=== PATIENT | male | born 1960 | race Caucasian/White ===

== ENCOUNTER → 2020-09-28 | Day surgery (SDC) | payer OTHER ==
[~2020-09-28] MED LIST: CRESTOR10 MG PO; LIDOCAINE HCL 2% LOCAL INJ 5 ML SDV VIAL INJ ONE; POVIDONE IODINE 0.05% 0.05 % ML PO ONE; PROPOFOL IV EMULSION 10 MG/ML 20 ML VIAL ONE; VITAMIN D3 PO
[2020-09-28 11:32] VITALS: BP 113/77
== END | disposition home or self-care (01) ==
LOC: OR 08:50
PROVIDERS: ATTEND Internal Medicine Gastroenterology
DX: Z12.11 Encounter for screening for malignant neoplasm of colon (principal); K64.8 Other hemorrhoids; Z71.3 Dietary counseling and surveillance; E66.9 Obesity, unspecified; Z91.018 Allergy to other foods; Z01.810 Encounter for preprocedural cardiovascular examination; Z01.812 Encounter for preprocedural laboratory examination; Z20.822 Contact with and (suspected) exposure to COVID-19; Z68.39 Body mass index [BMI] 39.0-39.9, adult
CPT/HCPCS: 45378; 93005; J2001; J2704; U0002